=== PATIENT | female | born 1965 | race African-American/Black ===

== ENCOUNTER 2017-09-03 07:18 | Day surgery (SDC) | payer OTHER ==
[2017-09-03 08:19] LABS: PLATELET COUNT 240 K/uL (152-353)
[2017-09-03 08:26] LABS: POTASSIUM 3.9 mmol/L (3.6-5.2); SODIUM 137 mmol/L (136-145)
== END 2017-09-03 12:10 | disposition home or self-care (01) ==
LOC: OR 07:18
PROVIDERS: Student in an Organized Health Care Education/Training Program
PROC: 0FT44ZZ Resection of Gallbladder, Percutaneous Endoscopic Approach (ICD-10-PCS; principal; 2017-09-03)
DX: K80.10 Calculus of gallbladder with chronic cholecystitis without obstruction (principal)
CPT/HCPCS: 80053; 85027; J0132; J0330; J0690; J1100; J1170; J1885; J2001; J2250; J2405; J2704; J3010; J3490; S0028